=== PATIENT | female | born 1940 | race Caucasian/White ===

== ENCOUNTER → 2017-04-04 | Outpatient (CLI) | payer OTHER | LOC: BMCIMAGING 13:05 | PROVIDERS: ATTEND Internal Medicine | DX: Z12.31 Encounter for screening mammogram for malignant neoplasm of breast (principal) | CPT/HCPCS: G0202 ==

== ENCOUNTER → 2018-05-09 | Outpatient (CLI) | payer OTHER | LOC: BMCIMAGING 14:53 | PROVIDERS: ATTEND Internal Medicine | DX: Z12.31 Encounter for screening mammogram for malignant neoplasm of breast (principal) ==

== ENCOUNTER 2018-07-14 08:48 | Observation (INO) | payer OTHER ==
--- NOTE | 2018-07-13 17:32 | GHP ---
DATE OF ADMISSION: 07/14/2018 HISTORY: The patient is a 77-year-old female who presents with left knee pain, swelling, and stiffne ss. This has been progressive over years. She has tried appropriate conservative measures, includin g exercises and medication. She has also had steroid and viscosupplementation injection. She contin ues to have significant functional problems with her knee. Her x-rays show advanced right knee trico mpartment osteoarthritis, most notably [id number] in the medial compartment. She has varus malalig nment. There is subchondral sclerosis and degenerative lipping. A right total knee arthroplasty is planned. PAST MEDICAL HISTORY: She does have a history of sleep apnea for which she uses a CPAP machine. She is hypothyroid. PAST SURGICAL HISTORY: Her surgeries include a bunion procedure, tonsillectomy, and D and C. MEDICATIONS: Include Hyzaar, Lipitor, and Synthroid. SOCIAL HISTORY: She is a former smoker, but quit at age 33. REVIEW OF SYSTEMS: Positive from a cardiopulmonary standpoint for sleep apnea and positive from the endocrine standpoint for hypothyroid. PHYSICAL EXAM: GENERAL: The patient is a well-nourished female in no apparent distress. HEAD AND N MEGGAN: Normocephalic, atraumatic. CHEST: Clear. CARDIOVASCULAR: Regular rate and rhythm. ABDOMEN: Soft. NEUROLOGICAL: She is alert and oriented x3. EXTREMITIES: Right knee shows a flexion contr acture that is mild. She has just about 120 degrees of flexion. A small effusion. She does have pe ripatellar tenderness. Ligamentously stable. Collaterals are stable. Definite medial joint line te nderness. Mild lateral joint line tenderness. NEUROVASCULAR: Skin intact. IMPRESSION: Right knee osteoarthritis. PLAN: Right total knee arthroplasty. Benefits and risks of surgery have been reviewed with the brendan ent, she understands that the risks include infection, damage to blood vessel or nerve, failure or lo osening of the components and need for revision, blood clot in the leg or lungs, or bleeding and need for transfusion. We have reviewed the rigorous nature of the rehabilitation. She has signed her co nsent form and wishes to proceed. /[id number]/MODL
[~2018-07-14 08:48] MED LIST: POVIDONE-IODINE 20 ML in SODIUM CL IRRIG SOLUTION 500 ML IRR ONE; ROPIVACAINE 0.2% 80 MG, EPINEPHrine 0.2 MG in SYRINGE 0 ML IU ONE; TRANEXAMIC ACID 1,000 MG in NS 100 ML IV ONE
--- NOTE | 2018-07-14 08:49 | PDANEPAE ---
ANE History of Present Illness Right total knee arthroplasty. ANE Past Medical History - Cardiovascular History Hx Hypertension: Yes Hx Arrhythmias: No Hx Chest Pain: No Hx Coronary Artery / Peripheral Vascular Disease: No Hx CHF / Valvular Disease: No Hx Palpitations: No Cardiovascular History Comment: Occ nighttime tachycardia when first lays down to bed. PCP following. 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 colon polyps - Other Health History Other Health History: wears glasses for reading. osteoarthritis. impingement injury right shoulder. eczema on eyelids - Chronic Pain History Chronic Pain: No - Surgical History Prior Surgeries: bunion removal. D&C's. breast bx ANE Review of Systems Review of Systems: - Exercise capacity METS (RN): 4 METS ANE Patient History - Allergies Allergies/Adverse Reactions: aspirin Allergy (Verified 06/18/18 10:08) Can't have due to ulcers NSAIDS (Non-Steroidal Anti-Inflamma Allergy (Verified 07/14/18 09:51) Can't have due to ulcers omeprazole [From Prilosec] Allergy (Verified 07/14/18 09:52) "Gives me a melatic taste" - Home Medications Home Medications: Acetaminophen [Tylenol ES 500 mg (*)] 1,000 mg PO BID PRN 06/16/18 [Last Taken 07/13/18 22:00] Atorvastatin Calcium [Lipitor 20 mg (*)] 20 mg PO HS 06/16/18 [Last Taken 22:00] Cyanocobalamin [Vitamin B12 (*)] 1,000 mcg PO MWF 06/16/18 [Last Taken 07/07/18] Herbals/Supplements -Info Only 1 ea PO DAILY 06/16/18 [Last Taken 07/07/18] Levothyroxine [Synthroid 50 mcg (*)] 50 mcg PO HS 06/16/18 [Last Taken 07/13/18 22:00] Losartan/Hctz 50/12.5 [Hyzaar 50/12.5MG (*)] 0.5 tab PO DAILY 06/16/18 [Last Taken 07/13/18 09:00] Multivitamins [Multivitamin (*)] 1 each PO HS 06/16/18 [Last Taken 07/07/18] Zolpidem Tartrate [Ambien 5MG (*)] 2.5 mg PO HS PRN 06/16/18 [Last Taken 22:00] diphenhydrAMINE [Benadryl 25 MG (*)] 25 mg PO HS PRN 06/16/18 [Last Taken ] - Anes Hx Anes Hx: no prior problems - Smoking Hx Smoking Status: Former smoker Marijuana use: No - Alcohol Use Alcohol Use: Other (2 drinks/day) - Family Anes Hx Family Anes Hx: none Family Hx Anesthesia Complications: none ANE Labs/Vital Signs - Vital Signs Height: 166.37 cm Weight: 79.379 kg ANE Physical Exam - Airway Neck exam: decreased ROM Mallampati Score: Class 2 - Pulmonary Pulmonary: clear to auscultation - Cardiovascular Cardiovascular: regular rate and rhythym - ASA Status ASA Status: II ANE Anesthesia Plan Anesthesia Plan: spinal Regional Anesthesia: adductor canal FNB
[2018-07-14] MEDS ORDERED: ceFAZolin 2 GM/DEXTROSE 100 ML IV ONE (08:55)
[2018-07-14] MEDS ORDERED: GABAPENTIN 300 MG CAP PO ONE (08:55)
[2018-07-14] MEDS ORDERED: LIDOCAINE 1% 2 ML INJ ID PRN (08:55)
[2018-07-14] MEDS ORDERED: LR 1,000 ML IV ONE (08:55)
[2018-07-14] MEDS ORDERED: ACETAMINOPHEN 325 MG TAB PO ONE (08:55)
[2018-07-14] MEDS ORDERED: ONDANSETRON 4 MG/2 ML VIAL IVP ONE (08:55)
[2018-07-14] MEDS ORDERED: DEXAMETHASONE 4 MG/ML VIAL IVP ONE (08:55)
[2018-07-14] MEDS ORDERED: FAMOTIDINE 20 MG TAB PO ONE (08:55)
[2018-07-14] MEDS ORDERED: ceFAZolin 1 GM/5 ML SYR ONE (09:00)
[2018-07-14] MEDS ORDERED: MIDAZOLAM 2 MG/2 ML VIAL IVP ONE (09:47)
[2018-07-14] MEDS ORDERED: BUPIVACAINE/DEXTROSE 7.5MG/ML 2 ML SPINAL AMP SP ONE (10:04)
[2018-07-14] MEDS ORDERED: fentaNYL 100 MCG/2 ML INJ ONE (10:04)
[2018-07-14] MEDS ORDERED: PROPOFOL 200 MG/20 ML VIAL ONE ×3 (10:04→11:42)
[2018-07-14] MEDS ORDERED: ROPIVACAINE HCL 150 MG/30 ML INJ ONE (10:45)
[2018-07-14] MEDS ORDERED: clonIDINE 1 MG/10 ML VIAL EP ONE (10:45)
[2018-07-14] MEDS ORDERED: HYDROmorphONE/DILAUDID 2 MG/ML INJ IVP PRN (12:02)
[2018-07-14] MEDS ORDERED: fentaNYL 100 MCG/2 ML INJ IVP PRN (12:02)
[2018-07-14] MEDS ORDERED: ONDANSETRON 4 MG/2 ML VIAL IVP PRN ×2 (12:02→12:27)
[2018-07-14] MEDS ORDERED: NALOXONE HCL 0.4 MG/ML INJ IVP PRN (12:02)
[2018-07-14] MEDS ORDERED: METOCLOPRAMIDE 10 MG/2 ML VIAL IVP PRN (12:27)
[2018-07-14] MEDS ORDERED: MAGNESIUM HYDROXIDE 30 ML UDCUP PO PRN (12:27)
[2018-07-14] MEDS ORDERED: PROMETHAZINE HCL 25 MG SUPPR PR PRN (12:27)
[2018-07-14] MEDS ORDERED: BISACODYL 10 MG SUPP PR PRN (12:27)
[2018-07-14] MEDS ORDERED: TEMAZEPAM 15 MG CAP PO PRN (12:27)
[2018-07-14] MEDS ORDERED: POLYETHYLENE GLYCOL 3350 17 GM PKT PO PRN (12:27)
[2018-07-14] MEDS ORDERED: CYCLOBENZAPRINE 10 MG TAB PO PRN (12:27)
[2018-07-14] MEDS ORDERED: PROMETHAZINE HCL 25 MG/ML INJ IVP PRN (12:27)
[2018-07-14] MEDS ORDERED: LACTULOSE 20 GM/30 ML UDCUP PO PRN (12:27)
[2018-07-14] MEDS ORDERED: diphenhydrAMINE 25 MG CAP PO PRN (12:27)
[2018-07-14] MEDS ORDERED: DIPHENOXYLATE/ATROPINE LOMOTIL 1 TAB PO PRN (12:27)
[2018-07-14] MEDS ORDERED: ONDANSETRON DISINTEGRATING 4 MG TAB PO PRN (12:27)
[2018-07-14] MEDS ORDERED: LR 1,000 ML IV SCH (12:30)
--- NOTE | 2018-07-14 13:34 | POSTANESTH ---
Post Anesthetic Evaluation Cardiovascular Status: Similar to Pre-Op Cond Respiratory Status: Similar to Pre-op Cond. Level of Consciousness/Mental Status: Can Participate in Eval Pain Control: Adequate, Prn Tx Ordered Nausea/Vomiting Control: Adequate, Prn Tx Ordered Complications Possibly Related to Anesthesia: None Noted
--- NOTE | 2018-07-14 13:58 | GOP ---
DATE OF OPERATION: 07/14/2018 SURGEON: Lonny Hoover MD [employer] OFFICER: KINDRA Sanders, BRYAN. ANESTHESIOLOGIST: Dr. Meet Paz. PREOPERATIVE DIAGNOSIS: Right knee osteoarthritis. POSTOPERATIVE DIAGNOSIS: Right knee osteoarthritis. PROCEDURE PERFORMED: Right total knee arthroplasty. FINDINGS: SPECIMENS: Included excised bone. ESTIMATED BLOOD LOSS: Minimal. INDICATIONS: The patient is a 77-year-old female who presents with history, exam and x-rays all cons istent with severe advanced right knee tricompartment osteoarthritis. She has tried appropriate cons ervative measures and is significantly limited by her knee at this point, so a total knee replacement is planned. DESCRIPTION OF PROCEDURE: The patient was taken to the operating room, and a spinal anesthetic was a dministered by Dr. Paz. She was placed supine, administered IV sedation, preoperative antibiotics 2 g IV Ancef as well as tranexamic acid. I placed a small blanket beneath the right hip to neutraliz e the rotation. No flexion contracture. Chlorhexidine prep was used and the leg was prepped and ped out free in the usual fashion. I elevated the extremity, exsanguinated the leg and inflated the tourniquet to 300 mmHg. I made a longitudinal incision in the midline and used a medial parapatellar arthrotomy. I inverted the patella. She had a large crystalline deposit at the proximal patellar t endon posterior aspect and this was excised with a scalpel. I removed osteophytes. I measured the t hickness of the patella and removed 9 mm of cartilage and bone and sized the patellar undersurface to a 38. I drilled peg holes. With the trial patella in place, I re-established the anatomic thicknes s of her patella. I then flexed the knee, drilled a pilot can router hole in the distal femur using intramedull david device for the femur, 5 degrees valgus cut. To engage enough bone in the cut I used a +2 cut. I then extended the knee, used a spacer to gina my tibia for the future cut of the tibia. I sized the femur at a size 5. I applied the cutting block and completed the anterior, posterior, and camphor c uts and notch cuts to this cruciate stabilized knee. The trial component was a good fit. On the tib ia I used an extramedullary device, dialing in rotation, posterior slope, depth of cut. I made a per pendicular cut of the tibia and sized this to a 4. I dialed in the rotation and completed the prep. All the components were removed. I used jet lavage antibiotic irrigation throughout, all components were cemented. After the components were cemented in place I did trial reductions and I found that a 10 articular spacer gave me excellent stability, full extension and good rollback in flexion. The size 10 articular tray was snapped into place. The knee was irrigated with Betadine rinse and saline rinse. The tourniquet was let down after 70 minutes. I closed the arthrotomy with interrupted figu re-of-eight sutures of 0 [place]il[place], subcutaneous tissue with 2-0 Monocryl, and the skin with serjio. The wound was dressed with Betadine-soaked Adaptic, 4 x 4, sterile Webril, and a long-leg LINDA stock ing. There were no complications. DRAINS: No drains. COUNTS: All counts were correct and The patient was taken in stable condition recovery and she will have an adductor block there. My surgical aides teacher was a medical necessity to achieve this total knee replacement. SUMMARY OF COMPONENTS: This is a [employer] bi-cruciate stabilized knee all components cemented. The femur is Oxinium. The tibial articular tray is cross-linked poly. Femur size 5, tib ia size 4, patella 38, the articular tray 10 mm. /[id number]/MODL
[2018-07-14] MEDS: oxyCODONE IR 5 MG TAB PO PRN ×2 (16:27→21:46)
--- NOTE | 2018-07-14 16:47 | ASMTCMCOM ---
CM Note CM Note Notes: Pt is s/p R TKA. PT/OT evals pending. Spoke with pt - she would like home PT. [place] live approx [place] outside [place]. Referrals sent via [employer]. CM will follow for d/c needs. D/C Plan: home care PT Date Signed: 07/14/2018 04:46 PM Electronically Signed By:MACY Engel
[2018-07-14] MEDS: ACETAMINOPHEN 325 MG TAB PO SCH (17:51)
[2018-07-14] MEDS: ceFAZolin 2 GM/DEXTROSE 100 ML IV SCH (17:52)
[2018-07-14] MEDS ORDERED: MULTIVITAMINS 1 EACH TAB PO SCH (21:00)
[2018-07-14] MEDS ORDERED: LEVOTHYROXINE 50 MCG TAB PO SCH (21:00)
[2018-07-14] MEDS ORDERED: ATORVASTATIN CALCIUM 20 MG TAB PO SCH (21:00)
[2018-07-14] MEDS: ASPIRIN 81 MG CHEWABLE TAB PO SCH (21:49)
[2018-07-14] MEDS: FAMOTIDINE 20 MG TAB PO SCH (21:49)
[2018-07-14] MEDS: SENNOSIDES/DOCUSATE SODIUM TAB PO SCH (21:49)
[2018-07-15] MEDS: ceFAZolin 2 GM/DEXTROSE 100 ML IV SCH (01:06)
[2018-07-15] MEDS: ACETAMINOPHEN 325 MG TAB PO SCH ×3 (01:07→11:15)
[2018-07-15] MEDS: SENNOSIDES/DOCUSATE SODIUM TAB PO SCH (08:33)
[2018-07-15] MEDS: ASPIRIN 81 MG CHEWABLE TAB PO SCH (08:33)
[2018-07-15] MEDS: oxyCODONE IR 5 MG TAB PO PRN ×2 (08:33→11:15)
[2018-07-15] MEDS: FAMOTIDINE 20 MG TAB PO SCH (08:33)
--- NOTE | 2018-07-15 08:41 | SOAPPROG ---
SOAP Progress Note Assessment/Plan: Assessment: 07/15/18 POD#1 R TKA, pain controlled, Hct 32, has been up, xray fine Plan: 07/15/18 08:39 D/C home , has PT set up, oxy, celebrex, tylenol, asa Objective: Vital Signs Temp Pulse Resp BP Pulse Ox 36.7 C 61 12 124/64 H 96 07/15/18 07:58 07/15/18 07:58 07/15/18 07:58 07/15/18 08:33 07/15/18 07:58 Laboratory Results 07/15/18 04:55 07/14/18 07/15/18 07/16/18 05:59 05:59 05:59 Intake Total 950 Output Total 700 Balance 250 ICD10 Worksheet Patient Problems: Problems Problem Status Onset Osteoarthritis of right knee Acute - ICD10 Problem Qualifiers (1) Osteoarthritis of right knee
[2018-07-15] MEDS ORDERED: Herbals/Supplements -Info Only PO SCH (09:00)
[2018-07-15] MEDS ORDERED: LOSARTAN/HCTZ 50/12.5 1 TAB PO SCH (09:00)
--- NOTE | 2018-07-15 11:39 | ASMTLACE ---
LACE Length of stay for Answers: 2 days current admission Acuity / Level of Answers: Yes Care: Did the patient have an inpatient admission? Comorbidities - select Answers: Other Notes: HTN; Hypothyroid all that apply # of Emergency department Answers: 0 visits in the last 6 months Score: 6 Date Signed: 07/15/2018 11:38 AM Electronically Signed By:MACY Boucher
--- NOTE | 2018-07-15 11:48 | ASMTCMCOM ---
CM Note CM Note Notes: Spoke with MD, HHC PT not recommended Spoke with pt, and son and they all understand and feel comfortable going home with no HHC. Pt has outpatient PT scheduled next week. PT rec home/outpatient. No CM d/c needs identified. Date Signed: 07/15/2018 11:48 AM Electronically Signed By:MACY Boucher
[2018-07-15 11:51] VITALS: BP 118/69
--- NOTE | 2018-07-15 16:17 | ASDISCHSUM ---
Discharge Information Plan Status:Home with No Needs Medically Cleared to Leave: Discharge Date:07/15/2018 01:00 PM CM D/C Disposition: ADT D/C Disposition:Home, Routine, Self-Care Projected Discharge Date:07/15/2018 11:00 AM Transportation at D/C: Discharge Delay Reason: Follow-Up Date:07/15/2018 11:00 AM Discharge Slot: Final Diagnosis: Placement Information Referral Type:*Home Health Care Services Referral ID:[id number] Provider Name: Address 1: Phone Number: Address 2: Fax Number: City: Selection Factors: State: Patient Contact Information Contact Name:WALESKA Relationship: Address:[facility] [address] Work Phone: Mario Alberto:LARS Crews Phone: [facility]/Zip Code:[place] [address] Email: Financial Information Financial Class:Medicare Primary Plan Desc:MEDICARE OUTPATIENT Primary Plan Number:[id number] Secondary Plan Desc:DIANELYSA Secondary Plan Number:[id number] Assessment Information LACE LACE Length of stay for Answers: 2 days current admission Acuity / Level of Answers: Yes Care: Did the patient have an inpatient admission? Comorbidities - select Answers: Other Notes: HTN; Hypothyroid all that apply # of Emergency department Answers: 0 visits in the last 6 months Score: 6 Date Signed: 07/15/2018 11:38 AM Electronically Signed By:MACY Boucher [facility] CM Progress Note CM Note CM Note Notes: Pt is s/p R TKA. PT/OT evals pending. Spoke with pt - she would like home PT. She and her live approx 7 miles outside [place]. Referrals sent via [facility]. CM will follow for d/c needs. D/C Plan: home care PT Date Signed: 07/14/2018 04:46 PM Electronically Signed By:MACY Engel [facility] CM Progress Note CM Note CM Note Notes: Spoke with MD, HHC PT not recommended Spoke with pt, and son and they all understand and feel comfortable going home with no HHC. Pt has outpatient PT scheduled next week. PT rec home/outpatient. No CM d/c needs identified. Date Signed: 07/15/2018 11:48 AM Electronically Signed By:MACY Boucher Intervention Information
[2018-07-16] MEDS ORDERED: CYANO/VITAMIN B12 1000 MCG TAB PO SCH (08:00)
== END 2018-07-15 13:00 | disposition home or self-care (01) ==
LOC: F3E 08:48 → F3N 13:21
PROVIDERS: ADMIT Orthopaedic Surgery; ATTEND Orthopaedic Surgery
PROC: 0SRC069 Replacement of Right Knee Joint with Oxidized Zirconium on Polyethylene Synthetic Substitute, Cemented, Open Approach (ICD-10-PCS; principal; 2018-07-14 10:00)
DX: M17.11 Unilateral primary osteoarthritis, right knee (principal); G47.33 Obstructive sleep apnea (adult) (pediatric); E03.9 Hypothyroidism, unspecified
CPT/HCPCS: 27447; 73560; 88311; 90686; 97110; 97116; 97161; 97165; C1713; C1776; G0008; G8978; G8979; G8980; G8987; G8988; G8989; J0171; J0690; J0735; J1100; J2250; J2405; J2704; J2795; J3010

== ENCOUNTER → 2018-12-06 | Outpatient (CLI) | payer OTHER | LOC: FIMAGING 14:32 | PROVIDERS: ATTEND Internal Medicine | DX: R41.3 Other amnesia (principal) | CPT/HCPCS: 70551-PN ==

== ENCOUNTER → 2019-02-25 | Outpatient (CLI) | payer OTHER | LOC: BMCIMAGING 14:56 ==